=== PATIENT | male | born 1955 | race Caucasian/White ===

== ENCOUNTER 2021-06-15 08:24 | Inpatient (IN) | payer MEDICARE, OTHER ==
[2021-06-15] VITALS (19 sets, daily range): BP systolic 62–165; BP diastolic 21–80
[~2021-06-15] VITALS: Ht 175.3 cm; Wt 49.4 kg
--- NOTE | 2021-06-15 08:27 | NUR ---
TO ER BED 5, [id number] FROM [facility] FOR NOTED LOW O2 SATURATION AT 78% ON ROOM AIR SALVAGE CLERK, TACHYCARDIA AND FEBRILE TEMP AT 102.2 RECTALLY UPON ARRIVAL, AAOX1, AWAITING MD ROY
[2021-06-15] MEDS ORDERED: ACETAMINOPHEN 650 MG/SUPP.RECT RC ONE ×2 (08:45→09:00)
--- NOTE | 2021-06-15 08:50 | NUR ---
MULTISKILL OPERATOR AT BEDSIDE FOR BLOOD DRAW
--- NOTE | 2021-06-15 08:51 | NUR ---
RESPIRATORY AT BEDSIDE
--- NOTE | 2021-06-15 08:52 | NUR ---
URINE COLLECTED AND SENT TO LAB
[2021-06-15] MEDS ORDERED: ALBUTEROL FS 2.5 MG/3 ML VIAL.NEB NEB ONE (09:00)
[2021-06-15] MEDS ORDERED: ALBUTEROL FS 2.5 MG/3 ML VIAL.NEB ONE (09:00)
[2021-06-15] MEDS ORDERED: CEFTRIAXONE 1GM BAG (ER ONLY) 50 ML IV ONE (09:00)
[2021-06-15] MEDS ORDERED: IPRATROPIUM NEB FS 0.5 MG/2.5 ML AMPUL.NEB ONE (09:00)
[2021-06-15] MEDS ORDERED: IV LR 1000 ML 1,000 ML BAG IV ONE (09:00)
--- NOTE | 2021-06-15 09:00 | NUR ---
COVID SWAB DONE AND SENT TO LAB
[2021-06-15 09:15] LABS: ABG PO2 55.9 mmHg (75.0-100.0); COHb 0.3 % (0.5-1.5); MetHb 0.3 % (0.0-1.5); O2Hb 88.7 % (94.0-97.0); SITE, ABG Right Brachial; VENT MODE, BG 15 LPM NRB
[2021-06-15 09:30] LABS: BASOPHILS # (AUTO) 0.1 K/uL (0.0-0.2); BASOPHILS % (AUTO) 0.3 % (0.0-2.0); HEMATOCRIT 25 % (39-51); HEMOGLOBIN 7.9 g/dL (13.5-17.5); LYMPHOCYTES % (AUTO) 4.7 % (20.0-44.0); MEAN CORPUSCULAR HGB CONC 31 g/dl (31.0-36.0); MEAN CORPUSCULAR VOLUME 89 fL (80-96); MONOCYTES # (AUTO) 1.5 K/uL (0.1-1.30); MONOCYTES % (AUTO) 7.1 % (2.0-12.0); NEUTROPHILS # (AUTO) 18.9 K/uL (1.8-8.9); NEUTROPHILS % (AUTO) 87.9 % (43.0-81.0); PLATELET COUNT (AUTO) 545 K/uL (150-450); RED BLOOD CELL COUNT(AUTO) 2.83 MIL/uL (4.5-6.0); WHITE BLOOD COUNT (AUTO) 21.5 K/uL (4.3-11.0)
[2021-06-15 09:40] LABS: BILIRUBIN,URINE NEGATIVE (NEGATIVE); COLOR,URINE YELLOW (YELLOW); LEUKOCYTE ESTERASE ,URINE NEGATIVE (NEGATIVE); NITRITE, URINE NEGATIVE (NEGATIVE); PROTEIN,URINE TRACE mg/dl (NEGATIVE); UGLUCOSE NEGATIVE (NEGATIVE); UROBILINOGEN,URINE 0.2 EU/dL (0.2)
[2021-06-15 09:41] LABS: ALANINE AMINOTRANSFERASE 7 U/L (12-78); ALBUMIN 2.5 g/dL (3.4-5.0); ALKALINE PHOSPHATASE 95 U/L (46-116); ASPARTATE AMINOTRANSFERASE 22 U/L (15-37); BILIRUBIN,DIRECT 0.1 mg/dL (0.0-0.2); BILIRUBIN,TOTAL 0.5 mg/dL (0.2-1.0); CARBON DIOXIDE 28 mmol/L (21-32); CHLORIDE 110 mmol/L (98-107); CREATININE 2.3 mg/dL (0.6-1.3); POTASSIUM 3.7 mmol/L (3.5-5.1); SODIUM SERUM 150 mmol/L (136-145); TOTAL PROTEIN, SERUM 6.4 g/dL (6.4-8.2); UREA NITROGEN, BLOOD 76 mg/dL (7-18)
[2021-06-15 09:56] LABS: GLUCOSE 96 mg/dL (74-106)
[2021-06-15] MEDS ORDERED: DOXYCYCLINE 100 MG in IV D5W 100 ML IV SCH (10:00)
[2021-06-15] MEDS ORDERED: IV LR 1000 ML 1,000 ML IV ONE ×2 (10:00→14:00)
--- NOTE | 2021-06-15 10:18 | NUR ---
EPIC PAGED, AWAITING CALL BACK. NURSING SHOEBLACK CALLED FOR ICU BED.
[2021-06-15] MEDS ORDERED: CRAN400T3 PO (10:45)
[2021-06-15] MEDS ORDERED: FERR325T23 PO (10:45)
[2021-06-15] MEDS ORDERED: AMIN30LI2 PO (10:45)
[2021-06-15] MEDS ORDERED: MAGN400T8 PO (10:45)
[2021-06-15] MEDS ORDERED: ASCO500C17 PO (10:45)
[2021-06-15] MEDS ORDERED: MULT-439 PO (10:45)
[2021-06-15] MEDS ORDERED: ZINC220T3 PO (10:45)
[2021-06-15] MEDS ORDERED: HYDR-4303 PO (10:45)
[2021-06-15 10:50] LABS: BACTERIA,URINE None seen /HPF (None Seen); CALCIUM OXALATE CRYSTALS,UR Few /HPF (None Seen); SQUAMOUS EPITHELIAL CELL,UR Rare /HPF (None Seen); WBC,URINE 0-2 /HPF (0-3)
--- NOTE | 2021-06-15 11:17 | NUR ---
BED GIVEN 103
--- NOTE | 2021-06-15 11:37 | NUR ---
REPORT GIVEN TO GABRIELLA (RN).
--- NOTE | 2021-06-15 12:13 | NUR ---
etomidate 20mg 1155 and succh 100 mg given at 1159 for intubation. pt got intubated at 1200.
[2021-06-15] MEDS ORDERED: PROPOFOL 100 ML IV PRN (12:30)
--- NOTE | 2021-06-15 12:30 | NUR ---
DIPRIVAN STARTED AT 1245 AT 5MCG/KG/MIN.
[2021-06-15] MEDS ORDERED: PROPOFOL 100 ML ONE (13:08)
[2021-06-15] MEDS ORDERED: SUCCINYLCHOLINE CHLORIDE 20 MG/ML VIAL IV ONE ×2 (13:30→14:00)
[2021-06-15] MEDS ORDERED: ETOMIDATE 2 MG/ML VIAL IV ONE ×2 (13:30→14:00)
[2021-06-15] MEDS ORDERED: Z GUARD REMEDY 4 OZ OINT TP PRN (14:00)
[2021-06-15] MEDS ORDERED: ACETAMINOPHEN 650 MG/SUPP.RECT RC PRN (14:00)
[2021-06-15] MEDS ORDERED: NOREPINEPHRINE 8 MG in IV NS 0.9% 242 ML IV ONE (14:00)
[2021-06-15] MEDS ORDERED: ONDANSETRON HCL/PF 4 MG/2 ML VIAL IVP PRN (14:00)
--- NOTE | 2021-06-15 14:15 | NUR ---
REPORT GIVEN TO JOSEPH CROWDER). Addendum: 06/15/21 at 1441 by LOGAN REPORT GIVEN TO JOSEPH CROWDER).
[2021-06-15] MEDS ORDERED: NOREPINEPHRINE 8 MG in IV NS 0.9% 242 ML IV PRN (14:30)
--- NOTE | 2021-06-15 14:39 | NUR ---
PT TRANSFERRED TO ICU PER ACLS PROTOCOL.
--- NOTE | 2021-06-15 14:40 | NUR ---
PT TRANSFERRED PER ACLS PROTOCOL.
[2021-06-15] MEDS: VANCOMYCIN 500 MG in IV D5W 100 ML IV SCH (15:06)
[2021-06-15] MEDS: ENOXAPARIN SODIUM 30 MG/0.3 ML DISP.SYRIN SQ SCH (15:10)
[2021-06-15] MEDS: PROPOFOL 100 ML IV PRN ×3 (15:29→19:24)
[2021-06-15 15:46] LABS: ABG BASE EXCESS -0.1 mmol/L; ABG PCO2 39.3 mmHg (35.0-45.0); ABG PH 7.412 (7.350-7.450); ABG PO2 49.5 mmHg (75.0-100.0); AaDO2 624.2 mmHg; COHb 0.3 % (0.5-1.5); MetHb 0.3 % (0.0-1.5); O2Hb 81.5 % (94.0-97.0); PEEP,BG 0 cm H2O; SITE, ABG Left Brachial; VENT MODE, BG AC 100%; VT, ABG 350 mL
--- NOTE | 2021-06-15 16:36 | NUR ---
RT Patient received in ER on 15 LPM via NRB. Pt placed on HFNC 60LPM/100% FI02 post ABG. Pt Sp02 remained 65% on HFNC + 15LPM NRB. MD Barnes intubated with 7.5 ETT 24cm @ Lip with settings as noted. Will continue to monitor. Ambu bag at bedside.
[2021-06-15] MEDS: DOCUSATE SODIUM 100 MG CAPSULE PO SCH (17:48)
[2021-06-15] MEDS: IV LR 1000 ML 1,000 ML IV PRN (19:24)
--- NOTE | 2021-06-15 20:00 | NUR ---
ICU NOTES Received patient sedated on Diprivan gtt at 60 mcg and patient currently intubated on full vent support.Continue on same vent settings.No acute respiratory distress noted.Afebrile.ST 120's. Normotensive.NPO with OGT clamped placement verified.HOB elevated.IVF LR infusing to VINNIE PICC line site intact.FC to gravity.Turned and repositioned.Continue monitoring.
[2021-06-15] MEDS: CEFEPIME 2 GM in IV D5W 100 ML IV SCH (21:00)
[2021-06-16] VITALS (90 sets, daily range): BP systolic 69–169; BP diastolic 38–85
[2021-06-16] MEDS: IV LR 1000 ML 1,000 ML IV PRN ×3 (00:34→21:29)
[2021-06-16] MEDS ORDERED: PHENYLEPHRINE 10 MG/ML VIAL ONE (00:38)
[2021-06-16] MEDS: PHENYLEPHRINE 50 MG in IV NS 0.9% 245 ML IV PRN ×2 (00:53→22:07)
--- NOTE | 2021-06-16 00:53 | NUR ---
ICU NOTES Patient started on Anibal Synephrine for low BP and will titrate accordingly. Continue monitoring.
[2021-06-16] MEDS: PROPOFOL 100 ML IV PRN ×4 (01:54→21:16)
[2021-06-16 06:00] LABS: BASOPHILS % (AUTO) 0.2 % (0.0-2.0); HEMATOCRIT 26 % (39-51); HEMOGLOBIN 8.2 g/dL (13.5-17.5); LYMPHOCYTES % (AUTO) 4.3 % (20.0-44.0); MEAN CORPUSCULAR HGB CONC 31 g/dl (31.0-36.0); MEAN CORPUSCULAR VOLUME 90 fL (80-96); MONOCYTES # (AUTO) 0.8 K/uL (0.1-1.30); MONOCYTES % (AUTO) 3.4 % (2.0-12.0); NEUTROPHILS # (AUTO) 21.5 K/uL (1.8-8.9); NEUTROPHILS % (AUTO) 92.1 % (43.0-81.0); PLATELET COUNT (AUTO) 494 K/uL (150-450); RED BLOOD CELL COUNT(AUTO) 2.91 MIL/uL (4.5-6.0); WHITE BLOOD COUNT (AUTO) 23.3 K/uL (4.3-11.0)
--- NOTE | 2021-06-16 06:27 | NUR ---
CLOSING NOTES. Patient remains sedated.ST 103-107.Tolerating vent settings.Oral care done.Bed bath rendered.Turned and repositioned q 2 hrs.Continue on Anibal Synephrine gtt at 0.09 mcg., Diprivan gtt at 50 mcg and IVF LR.No acute distress noted.No BM noted.Urine minimal. Will endorse to day shift for СЕРГЕЙ.
--- NOTE | 2021-06-16 07:15 | NUR ---
RN NOTES RECEIVED PT SEDATED ON DIPRIVAN @50MCG. INTUBATED ETT 7.5/24CM AT THE LIP. AC: 18, TV: 350, FIO2: 90% AND PEEP OF 5. TOLERATING VENT SETTINGS WELL, O2 SAT @100%. VINNIE PICC INTACT AND PATENT. GARETT @0.9 MCG AND LR @100ML. MCINTYRE CATH IN PLACE. BILATERAL SOFT WRIST RESTRAINTS NOTED, CHECKED CIRCULATION PER PROTOCOL. SAFETY MEASURES IN PLACE. BED LOCKED AND IN LOWEST POSITION WITH SIDE RAILS UP X3. WILL CONTINUE TO MONITOR.
[2021-06-16 07:24] LABS: CREATININE 2.2 mg/dL (0.6-1.3); MAGNESIUM 1.6 mg/dL (1.8-2.4); PHOSPHORUS 5.8 mg/dL (2.5-4.9); POTASSIUM 3.9 mmol/L (3.5-5.1)
[2021-06-16] MEDS: DOCUSATE SODIUM 100 MG CAPSULE PO SCH ×2 (08:21→16:37)
[2021-06-16] MEDS: PANTOPRAZOLE 40 MG VIAL IV SCH (08:21)
[2021-06-16 10:50] LABS: CALCIUM, SERUM 13.2 mg/dL (8.5-10.1)
[2021-06-16] MEDS ORDERED: MAGNESIUM OXIDE 400 MG TABLET NG ONE (11:00)
[2021-06-16 12:23] LABS: ALBUMIN 2.1 g/dL (3.4-5.0); BILIRUBIN,TOTAL 0.2 mg/dL (0.2-1.0); TOTAL PROTEIN, SERUM 5.4 g/dL (6.4-8.2)
[2021-06-16] MEDS ORDERED: PAMIDRONATE 90 MG in IV NS 0.9% 500 ML IV ONE (14:00)
[2021-06-16] MEDS: ENOXAPARIN SODIUM 30 MG/0.3 ML DISP.SYRIN SQ SCH (14:17)
--- NOTE | 2021-06-16 19:10 | NUR ---
RN NOTES RECEIVED PT SEDATED ON DIPRIVAN @50MCG. INTUBATED ETT 7.5/24CM AT THE LIP. AC: 18, TV: 350, FIO2: 50% AND PEEP OF 5. TOLERATING VENT SETTINGS WELL, O2 SAT @100%. VINNIE PICC INTACT AND PATENT. GARETT @0.8 MCG AND LR @100ML. MCINTYRE CATH IN PLACE. BILATERAL SOFT WRIST RESTRAINTS NOTED, CHECKED CIRCULATION PER PROTOCOL. SAFETY MEASURES IN PLACE. BED LOCKED AND IN LOWEST POSITION WITH SIDE RAILS UP X3. WILL CONTINUE TO MONITOR.
[2021-06-16 19:15] LABS: THYROID STIMULATING HORMONE 1.188 uIU/mL (0.358-3.74)
--- NOTE | 2021-06-16 19:20 | NUR ---
RN NOTES NO SIGNIFICANT CHANGES THROUGHOUT THE SHIFT. TOLERATING VENT SETTINGS WELL. NO SOB OR ANY DISTRESS. ALL DUE MEDS GIVEN. NEEDS ATTENDED. KEPT CLEAN AND COMFORTABLE. SAFETY MEASURES IN PLACE. ENDORSED TO NIGHT RN FOR СЕРГЕЙ.
[2021-06-16] MEDS: CEFEPIME 2 GM in IV D5W 100 ML IV SCH (21:08)
[2021-06-17] VITALS (88 sets, daily range): BP systolic 99–159; BP diastolic 47–86
[2021-06-17] MEDS: PROPOFOL 100 ML IV PRN ×4 (06:03→22:45)
[2021-06-17 06:38] LABS: MAGNESIUM 1.8 mg/dL (1.8-2.4)
--- NOTE | 2021-06-17 06:52 | NUR ---
RN NOTES PATIENT SEDATED NO SIGNIFICANT CHANGES. STILL ON ET CONNECTED TO VENT WITH PRESCRIBED SETTING TOLERATED WELL. WITH PROPOFOL @ 50 MCG, GARETT @ 0.7. ALL DUE MEDS GIVEN ORDERED. KEPT CLEAN AND DRY. ALL SAFETY MEASURES IN PLACE AT ALL TIMES. HOB ELEVATED. CALL LIGHT WITHIN REACH. WILL ENDORSED TO MORNING SHIFT FOR СЕРГЕЙ
--- NOTE | 2021-06-17 07:30 | NUR ---
RN OPENING NOTE PT RECEIVED IN BED WITH HOB 30 DEGREES. PT IS ON MECHANICAL VENT WITH ALL PRESCRIBED SETTINGS TOLERATING WELL WITH NO SIGNS OF LABORED BREATHING OR SOB O2 SAT 99%. PT IS SEDATED WITH DIPROVAN @50MCG/HR. FC IS IN PLACE DRAINING URINE TO GRAVITY. IV ACCESS R FA 18G; L FA 18G; R UA PICC; INFUSING WITH DIPROVAN @50MCG/HR, GARETT @ 0.7 MCG/HR, AND LR @ 100ML/HR. BED IS LOCKED IN LOWEST POSITION X 2 GUARD RAILS UP AND ALL HOSPITAL SAFETY PROTOCOLS ARE IN PLACE. WILL CONTINUE TO MONITOR THIS SHIFT.
[2021-06-17] MEDS: IV LR 1000 ML 1,000 ML IV PRN ×2 (07:45→17:32)
[2021-06-17 08:37] LABS: BASOPHILS % (AUTO) 0.2 % (0.0-2.0); EOSINOPHILS % (AUTO) 0.6 % (0.0-6.0); HEMATOCRIT 31 % (39-51); HEMOGLOBIN 8.5 g/dL (13.5-17.5); LYMPHOCYTES # (AUTO) 1.3 K/uL (0.8-4.8); LYMPHOCYTES % (AUTO) 6.8 % (20.0-44.0); MEAN CORPUSCULAR HGB CONC 27 g/dl (31.0-36.0); MEAN CORPUSCULAR VOLUME 102 fL (80-96); MONOCYTES # (AUTO) 0.7 K/uL (0.1-1.30); MONOCYTES % (AUTO) 3.6 % (2.0-12.0); NEUTROPHILS # (AUTO) 16.6 K/uL (1.8-8.9); NEUTROPHILS % (AUTO) 88.8 % (43.0-81.0); PLATELET COUNT (AUTO) 453 K/uL (150-450); RED BLOOD CELL COUNT(AUTO) 3.07 MIL/uL (4.5-6.0); WHITE BLOOD COUNT (AUTO) 18.7 K/uL (4.3-11.0)
[2021-06-17] MEDS: PANTOPRAZOLE 40 MG VIAL IV SCH (08:38)
[2021-06-17] MEDS: DOCUSATE SODIUM 100 MG CAPSULE PO SCH (08:38)
[2021-06-17 08:59] LABS: CALCIUM, SERUM 12.6 mg/dL (8.5-10.1); CREATININE 2.4 mg/dL (0.6-1.3); POTASSIUM 3.5 mmol/L (3.5-5.1)
[2021-06-17 09:52] LABS: ABG BASE EXCESS 0.4 mmol/L; ABG OXYGEN SATURATION 97.1 % (92.0-98.5); ABG PCO2 37.9 mmHg (35.0-45.0); ABG PH 7.431 (7.350-7.450); AaDO2 223.9 mmHg; COHb 0.3 % (0.5-1.5); MetHb 0.2 % (0.0-1.5); O2Hb 96.6 % (94.0-97.0); SITE, ABG Right Radial
--- NOTE | 2021-06-17 12:00 | NUR ---
RN NOTE PER XRAY IMPRESSION AND RECOMMENDATION, OG TUBE PLACEMENT ADVANCED BY 5CM, FROM 47CM - 52CM.
[2021-06-17] MEDS: ENOXAPARIN SODIUM 30 MG/0.3 ML DISP.SYRIN SQ SCH (13:09)
[2021-06-17] MEDS: VANCOMYCIN 500 MG in IV D5W 100 ML IV SCH (15:02)
[2021-06-17] MEDS ORDERED: PAMIDRONATE 90 MG in IV NS 0.9% 500 ML IV ONE (16:30)
[2021-06-17] MEDS ORDERED: CALCITONIN,SALMON INJ 400 UNITS/2 ML VIAL SQ SCH (17:00)
[2021-06-17] MEDS: PHENYLEPHRINE 50 MG in IV NS 0.9% 245 ML IV PRN (17:37)
[2021-06-17] MEDS: DOCUSATE SODIUM LIQ 100 MG/10 ML UDC NG SCH (17:37)
--- NOTE | 2021-06-17 19:30 | NUR ---
RN CLOSING NOTE PT IS IN BED WITH HOB 30 DEGREES. PT IS ON MECHANICAL VENT WITH ALL PRESCRIBED SETTINGS TOLERATING WELL WITH NO SIGNS OF LABORED BREATHING OR SOB O2 SAT 100%. PT IS SEDATED WITH DIPROVAN @50MCG/HR. FC IS IN PLACE DRAINING URINE TO GRAVITY. IV ACCESS R FA 18G; L FA 18G; R UA PICC; INFUSING WITH DIPROVAN @50MCG/HR, GARETT @ 0.6 MCG/HR, AND LR @ 100ML/HR. BED IS LOCKED IN LOWEST POSITION X 2 GUARD RAILS UP AND ALL HOSPITAL SAFETY PROTOCOLS ARE IN PLACE. WILL ENDORSE TO INSTRUMENT PANEL ASSEMBLER NURSE FOR СЕРГЕЙ.
--- NOTE | 2021-06-17 21:12 | NUR ---
LABORATORY IMMUNOLOGIST. INITIAL ASSESSMENT. RECEIVED THE PT REST IN BED. ORALLY INTUBATED, SEDATED WITH PROPOFOL 50MCG/KG/MIN, GARETT 0.6MCG/KG/MIN REMAINING SAME VENT SETTINGS TOLERATED WELL. SAT 98%, NO ACUTE DISTRESS NOTED, CHANNEL CEMENTER SHOWING NSR, IV RT UPPER ARM PICC, LR 100ML/H,PROPOFOL 50 MG/KG/MIN, GARETT 0.6 MCG/KG/MIN, FC PATENT. OGT CLAMPED. HOB ELEVATED. WILL ONTINUE TO MONITOR VITALS
[2021-06-17] MEDS: CEFEPIME 2 GM in IV D5W 100 ML IV SCH (21:22)
[2021-06-18] VITALS (84 sets, daily range): BP systolic 73–125; BP diastolic 40–67
[2021-06-18] MEDS: IV LR 1000 ML 1,000 ML IV PRN ×3 (03:16→23:06)
[2021-06-18 04:59] LABS: HEMATOCRIT 26 % (39-51); HEMOGLOBIN 8.1 g/dL (13.5-17.5); MEAN CORPUSCULAR HGB CONC 32 g/dl (31.0-36.0); MEAN CORPUSCULAR VOLUME 89 fL (80-96); NEUTROPHILS % (AUTO) 93.1 % (43.0-81.0); PLATELET COUNT (AUTO) 414 K/uL (150-450); RED BLOOD CELL COUNT(AUTO) 2.89 MIL/uL (4.5-6.0); WHITE BLOOD COUNT (AUTO) 16.4 K/uL (4.3-11.0)
[2021-06-18 05:00] LABS: BASOPHILS % (AUTO) 0.2 % (0.0-2.0); EOSINOPHILS % (AUTO) 1.7 % (0.0-6.0); LYMPHOCYTES # (AUTO) 0.4 K/uL (0.8-4.8); LYMPHOCYTES % (AUTO) 2.7 % (20.0-44.0); MONOCYTES # (AUTO) 0.4 K/uL (0.1-1.30); MONOCYTES % (AUTO) 2.3 % (2.0-12.0); NEUTROPHILS # (AUTO) 15.3 K/uL (1.8-8.9)
[2021-06-18 05:44] LABS: CALCIUM, SERUM 11.7 mg/dL (8.5-10.1); CREATININE 2.4 mg/dL (0.6-1.3); POTASSIUM 3.2 mmol/L (3.5-5.1)
--- NOTE | 2021-06-18 06:00 | NUR ---
horticultural farmer. am care given. remaining same vent settings tolerated well. sat 98%. no acute distress noted. hall monitor showing nsr. remaining icf lr 100ml/h, propofol 50mcg/kg/min,lakeisha 0.8 mcg/kg/min,fc patent. urine draining. hob elevated. will continue to monitor vitals.
[2021-06-18] MEDS: PROPOFOL 100 ML IV PRN ×3 (07:24→22:51)
--- NOTE | 2021-06-18 07:30 | NUR ---
RN OPENING NOTE PT RECEIVED IN BED WITH HOB 30 DEGREES. PT IS ON MECHANICAL VENT WITH ALL PRESCRIBED SETTINGS TOLERATING WELL WITH NO SIGNS OF LABORED BREATHING OR SOB O2 SAT 100%. PT IS SEDATED WITH DIPROVAN @50MCG/HR. OG IS IN PLACE AND CLAMPED AT THIS TIME AND NPO DUE TO POSSIBLE THORACENTESIS TODAY. FNS AND WOUND CONSULTATION WILL BE DONE TODAY. FC IS IN PLACE DRAINING URINE TO GRAVITY. IV ACCESS R FA 18G; L FA 18G; R UA PICC; INFUSING WITH DIPROVAN @50MCG/HR, GARETT @ 0.8 MCG/HR, AND LR @ 100ML/HR. BED IS LOCKED IN LOWEST POSITION X 2 GUARD RAILS UP AND ALL HOSPITAL SAFETY PROTOCOLS ARE IN PLACE. WILL CONTINUE TO MONITOR THIS SHIFT.
--- NOTE | 2021-06-18 07:47 | NUR ---
WOUND CARE CONSULT: PT PRESENTS WITH CACHEXIA, SACRAL DEEP TISSUE INJURY (INTACT) AND OPEN AREA WITH YELLOW SLOUGH, PRESENT ON ADMISSION. PT NOTED TO HAVE SCARRING TO BILATERAL LATERAL LOWER LEGS WITH DISCOLORATION. PT IS CURRENTLY INTUBATED. PT IS ON KAILASH ISOFLEX LOW AIRLOSS BED. SKIN PROTECTION MEASURES DISCUSSED WITH NURSING STAFF. FRANCISCO JAVIER GOODSON NOTED. SURGICAL CONSULT CALLED TO DR KOHANZADEH. TEJEDA IN AGREEMENT WITH PLAN OF CARE. Addendum: 06/18/21 at 0750 by ASHUTOSH LUCAS WNDNU Amended: Links added.
[2021-06-18] MEDS: DOCUSATE SODIUM LIQ 100 MG/10 ML UDC NG SCH ×2 (09:00→17:42)
[2021-06-18] MEDS: PANTOPRAZOLE 40 MG/PACK PACK NG SCH (09:00)
[2021-06-18] MEDS ORDERED: POTASSIUM CHLORIDE 20 MEQ POWDER PACKET GT SCH (10:00)
--- NOTE | 2021-06-18 11:30 | NUR ---
RN NOTE: CONSENT ATTEMPT THIS NURSE CALLED [facility] TO REQUEST CONSENT FOR PT FOR US GUIDED THORACENTESIS LEFT SIDED. WAS UNABLE TO MAKE CONTACT WITH [facility].
--- NOTE | 2021-06-18 11:35 | NUR ---
RN NOTE: CONSENT SIGNED OBTAINED SIGNATURE FOR US GUIDED THORACENTESIS FROM DR. ROMEO RANKIN DUE TO BEING UNABLE TO GET CONSENT FROM [facility], NEXT OF KIN LISTED IN CHART.
[2021-06-18] MEDS ORDERED: POTASSIUM CL. PREMIX PERIPHER. 50 ML IV SCH (12:00)
--- NOTE | 2021-06-18 12:26 | NUR ---
RN NOTE: S/P US GUIDED THORACENTESIS LEFT SIDED US GUIDED THORACENTESIS LEFT SIDED COMPLETED AT BEDSIDE BY RADIOLOGIST. NO COMPLICATIONS AND PT IS STABLE AT THIS TIME. -30ML FLUID REMOVED FOR DIAGNOSTIC PURPOSES. ALL FORMS COMPLETED, TAKEN TO LAB, DROPPED OFF AND SIGNED CYTOLOGY FOLDER.
[2021-06-18] MEDS: IV NS 0.9% 250 ML IV PRN (12:43)
[2021-06-18] MEDS: ENOXAPARIN SODIUM 30 MG/0.3 ML DISP.SYRIN SQ SCH (13:24)
--- NOTE | 2021-06-18 14:00 | NUR ---
RN NOTE: PREVELON OFFLOADING BOOTS CONTACTED [facility] FOR PREVELON OFFLOADING BOOTS RECOMMENDED FOR PT BY PROVIDER. [facility] REPORTED THEY DO NOT HAVE THE BOOTS
[2021-06-18] MEDS: PHENYLEPHRINE 50 MG in IV NS 0.9% 245 ML IV PRN (18:44)
[2021-06-18] MEDS: JEVITY 1.2 CAL 1,000 ML BOTTLE GT PRN (19:01)
--- NOTE | 2021-06-18 19:30 | NUR ---
RN CLOSING NOTE PT IN BED WITH HOB 30 DEGREES. PT IS ON MECHANICAL VENT WITH ALL PRESCRIBED SETTINGS TOLERATING WELL WITH NO SIGNS OF LABORED BREATHING OR SOB O2 SAT 98%. PT IS SEDATED WITH DIPROVAN @50MCG/HR. OG AND WAS ADVANCED BY 3CM PER RADIOLOGY RECOMMENDATION TO 55CM AND IS CURRENTLY INFUSING WITH JEVITY 1.2 @10ML/HR X24 HOURS. PT HAD LEFT HD GUIDED THORACENTESIS TODAY -30ML FOR DIAGNOSTIC PURPOSES. FNS AND WOUND CONSULTATION WAS DONE TODAY. FC IS IN PLACE DRAINING URINE TO GRAVITY -650ML. IV ACCESS R FA 18G; L FA 18G; R UA PICC; INFUSING WITH DIPROVAN @50MCG/HR, GARETT @ 1.0 MCG/HR, AND LR @ 100ML/HR. BED IS LOCKED IN LOWEST POSITION X 2 GUARD RAILS UP AND ALL HOSPITAL SAFETY PROTOCOLS ARE IN PLACE. WILL ENDORSE TO DIRECTOR TRANSLATIONAL NURSE FOR СЕРГЕЙ.
--- NOTE | 2021-06-18 20:00 | NUR ---
ICU NOTES Patient intubated to mechanical vent continue the same settings well tolerated.Sedated on Diprivan gtt at 50 mcg.SR.Continue Levophed gtt at 1 mcg and will titrate accordingly.No signs of distress.OGT feeding in progress.Placement verified.No residual noted.Maintain HOB elevated to prevent aspiration.FC to gravity.Turned and repositioned.Continue monitoring.
[2021-06-18] MEDS: CEFEPIME 2 GM in IV D5W 100 ML IV SCH (21:14)
[2021-06-18] MEDS: THERAHONEY GEL 1.5 OZ TUBE TP SCH (22:00)
[2021-06-19] VITALS (96 sets, daily range): BP systolic 49–141; BP diastolic 31–73
[2021-06-19 05:28] LABS: BASOPHILS # (AUTO) 0.1 K/uL (0.0-0.2); BASOPHILS % (AUTO) 0.5 % (0.0-2.0); EOSINOPHILS % (AUTO) 1.4 % (0.0-6.0); HEMATOCRIT 26 % (39-51); HEMOGLOBIN 8.5 g/dL (13.5-17.5); LYMPHOCYTES # (AUTO) 0.5 K/uL (0.8-4.8); LYMPHOCYTES % (AUTO) 4.1 % (20.0-44.0); MEAN CORPUSCULAR HGB CONC 32 g/dl (31.0-36.0); MEAN CORPUSCULAR VOLUME 88 fL (80-96); MONOCYTES # (AUTO) 0.4 K/uL (0.1-1.30); MONOCYTES % (AUTO) 2.8 % (2.0-12.0); NEUTROPHILS # (AUTO) 11.7 K/uL (1.8-8.9); NEUTROPHILS % (AUTO) 91.2 % (43.0-81.0); PLATELET COUNT (AUTO) 429 K/uL (150-450); RED BLOOD CELL COUNT(AUTO) 2.98 MIL/uL (4.5-6.0); WHITE BLOOD COUNT (AUTO) 12.8 K/uL (4.3-11.0)
[2021-06-19] MEDS: PROPOFOL 100 ML IV PRN ×2 (05:30→17:25)
--- NOTE | 2021-06-19 06:34 | NUR ---
ICU NOTES Patient remains sedated with Diprivan at 50 mcg.Continued on same vent settings.No acute distress noted.VSS.Still on low dose of Anibal Synephrine gtt.Tolerating feeding.AM care and wound care done.Turned and repositioned Q 2 hrs off loading pressure points.No significant changes noted during the shift.Kept comfortable.
--- NOTE | 2021-06-19 07:30 | NUR ---
OPENING NOTE: REPORT RECEIVED FROM MALORIE GALVIN. PT INTUBATED SEDATED ON PROPOFOL. GARETT-SYNEPHRINE GTT INFUSING PER MD ORDERS. TUBE FEEDING INFUSING WITHOUT DIFFICULTY PER REPORT AT 10ML/HR. PT CHECKED ON HOURLY AND PRN BY NURSING STAFF.
[2021-06-19 08:31] LABS: CREATININE 2.1 mg/dL (0.6-1.3); POTASSIUM 3.3 mmol/L (3.5-5.1)
[2021-06-19] MEDS: DOCUSATE SODIUM LIQ 100 MG/10 ML UDC NG SCH ×2 (08:35→17:00)
[2021-06-19] MEDS: PANTOPRAZOLE 40 MG/PACK PACK NG SCH (08:35)
[2021-06-19] MEDS: THERAHONEY GEL 1.5 OZ TUBE TP SCH (08:36)
[2021-06-19] MEDS: IV LR 1000 ML 1,000 ML IV PRN ×2 (09:47→17:20)
[2021-06-19] MEDS ORDERED: POTASSIUM CL. PREMIX PERIPHER. 50 ML IV SCH (10:00)
--- NOTE | 2021-06-19 10:54 | NUR ---
RN CALLED [facility] [phone] AT 0900, LEFT MESSAGE. [facility] RETURNED THE CALL TO RN AT 1040. ED STATED THAT PATIENT USED TO LIVE AT HER HOUSE BUT PT'S SISTER ITZ LINK (CELL) [phone], (HOME) [phone] IS PT'S NEXT OF KIN AND WHO SHOULD BE MAKING DECISIONS FOR PATIENT. RN CALLED ITZ AND INFORMED HER THAT PATIENT IS IN THE HOSPITAL AND HIS CURRENT STATUS. RN INFORMED ITZ THAT HER NAME AND NUMBER WILL BE UPDATED IN OUR SYSTEM FOR NOK AND CONTACT INFORMATION. ITZ WAS GIVEN INFORMATION REGARDING CODE STATUS, EXPLAINED THE DIFFERENCE BETWEEN FULL CODE, DNR AND COMFORT MEASURES. ITZ STATED SHE WANTED TO TALK TO THEIR HALF SISTER BELÉN BEFORE MAKING A DECISION AND WILL CALL BACK. Addendum: 06/19/21 at 1107 by RITIKA NOVOA RN OK FOR [facility] TO GET INFORMATION ABOUT PATIENTS STATUS BUT NOT MAKE DECISIONS FOR HIS CARE.
[2021-06-19] MEDS: VANCOMYCIN 0.75 GM in IV D5W 250 ML IV SCH (14:39)
[2021-06-19] MEDS: ENOXAPARIN SODIUM 30 MG/0.3 ML DISP.SYRIN SQ SCH (14:46)
[2021-06-19] MEDS: JEVITY 1.2 CAL 1,000 ML BOTTLE GT PRN (17:17)
[2021-06-19] MEDS: IV NS 0.9% 250 ML IV PRN (17:20)
[2021-06-19] MEDS: PHENYLEPHRINE 50 MG in IV NS 0.9% 245 ML IV PRN (17:47)
--- NOTE | 2021-06-19 18:15 | NUR ---
END OF SHIFT NOTE: PT HAD A FAIRLY UNEVENTFUL SHIFT. PT HAD A LARGE FORMED BM THIS SHIFT. PROPOFOL TITRATED OFF FOR SEDATION VACATION TODAY, TURNED BACK ON TO 10 MCG/KG/MIN FOR ELEVATED RESPIRATIONS, PT NOT AGITATED, NODS OCCASIONALLY TO QUESTIONS. GARETT-SYNEPHRINE TITRATED DOWN TO 0.02 MCG/KG/MIN PER MD ORDERS. DRESSING CHANGES DONE PER MD ORDERS. PT CHECKED ON HOURLY AND PRN BY NURSING STAFF.
--- NOTE | 2021-06-19 20:00 | NUR ---
ICU NOTES Patient awake on Diprivan gtt at 10 mcg patient calm but RR 30'S. Increased Diprivan rate per protocol.Remains intubated with same vent settings.No acute respiratory distress noted. SR/ST low 100's.Levophed gtt infusing at low dose for BP support.OGT feeding in progress. Placement verified no residual noted.HOB elevated.FC to gravity.Turned and repositioned off loading pressure points. Addendum: 06/19/21 at 2255 by MALORIE MORRIS RN CORRECTION: GARETT SYNEPHRINE GTT INFUSING NOT LEVOPHED GTT.
[2021-06-19] MEDS: CEFEPIME 2 GM in IV D5W 100 ML IV SCH (21:09)
[2021-06-20] VITALS (68 sets, daily range): BP systolic 89–159; BP diastolic 29–81
[2021-06-20] MEDS: IV LR 1000 ML 1,000 ML IV PRN ×2 (03:39→16:03)
[2021-06-20 04:22] LABS: BASOPHILS % (AUTO) 0.3 % (0.0-2.0); EOSINOPHILS % (AUTO) 1.1 % (0.0-6.0); HEMATOCRIT 25 % (39-51); HEMOGLOBIN 8.2 g/dL (13.5-17.5); LYMPHOCYTES # (AUTO) 0.5 K/uL (0.8-4.8); LYMPHOCYTES % (AUTO) 4.4 % (20.0-44.0); MEAN CORPUSCULAR HGB CONC 32 g/dl (31.0-36.0); MEAN CORPUSCULAR VOLUME 87 fL (80-96); MONOCYTES # (AUTO) 0.3 K/uL (0.1-1.30); MONOCYTES % (AUTO) 3.1 % (2.0-12.0); NEUTROPHILS % (AUTO) 91.1 % (43.0-81.0); PLATELET COUNT (AUTO) 329 K/uL (150-450); RED BLOOD CELL COUNT(AUTO) 2.91 MIL/uL (4.5-6.0); WHITE BLOOD COUNT (AUTO) 10.9 K/uL (4.3-11.0)
[2021-06-20 04:33] LABS: CALCIUM, SERUM 10.5 mg/dL (8.5-10.1); CREATININE 1.9 mg/dL (0.6-1.3); MAGNESIUM 1.9 mg/dL (1.8-2.4); PHOSPHORUS 4.7 mg/dL (2.5-4.9); POTASSIUM 3.2 mmol/L (3.5-5.1)
[2021-06-20] MEDS: PROPOFOL 100 ML IV PRN (05:35)
--- NOTE | 2021-06-20 07:00 | NUR ---
END NOTE Patient resting in no acute distress.VS stable.SR.Anibal synephrine gtt titrated down per protocol.Tolerating OGT feeding.Moderate soft BM.Kept clean and dry.Bathed and linens changed.Turned and repositioned.Report given to Jamie Vasquezfor continuity of care.
--- NOTE | 2021-06-20 07:05 | NUR ---
PT RECEIVED IN BED SEDATED. PT IS ON MECHANICAL VENT SETTING PER MD FIO2 40% TOLERATING WELL WITH NO SIGNS OF LABORED BREATHING OR SOB O2 SAT 99%. PT IS SEDATED WITH DIPRIVAN @30MCG//KG/MIN.GARETT @ 0.01 MCG//KG/MIN AND LR @ 100ML/HR. FC IS IN PLACE DRAINING URINE TO GRAVITY. IV ACCESS R FA 18G; L FA 18G; R UA PICC; BILATERAL WRIST SOFT RESTRAINTS ON PLACE CIRCULATION WILL CHECKED REGULARLY, BED IS LOCKED IN LOWEST POSITION X 2 GUARD RAILS UP AND ALL HOSPITAL SAFETY PROTOCOLS ARE IN PLACE. WILL CONTINUE TO MONITOR
[2021-06-20] MEDS: DOCUSATE SODIUM LIQ 100 MG/10 ML UDC NG SCH ×2 (08:23→16:40)
[2021-06-20] MEDS: PANTOPRAZOLE 40 MG/PACK PACK NG SCH (08:23)
[2021-06-20] MEDS: THERAHONEY GEL 1.5 OZ TUBE TP SCH (08:23)
--- NOTE | 2021-06-20 08:53 | NUR ---
TURN OFF SEDATION PER DR. KELLEY, SEDATE PT ONLY WHEN HE IS ON DISTRESS
[2021-06-20] MEDS: POTASSIUM CL. PREMIX PERIPHER. 50 ML IV SCH ×3 (09:29→11:42)
[2021-06-20] MEDS: VANCOMYCIN 0.75 GM in IV D5W 250 ML IV SCH (14:11)
[2021-06-20] MEDS: ENOXAPARIN SODIUM 30 MG/0.3 ML DISP.SYRIN SQ SCH (14:13)
--- NOTE | 2021-06-20 15:41 | NUR ---
fio2 increase from 40% to 60% due to desaturation. Addendum: 06/20/21 at 1542 by TENZIN PAUL RT Amended: Links added.
--- NOTE | 2021-06-20 18:19 | NUR ---
PT HR IS ON 100-120 SINUS TACHY ON MONITOR, INFORMED KENNY AG DO ABOUT THAT WITH ORDER FOR NORCO 10/325 PRN FOR MOD PAIN NOTED AND CARRIED OUT
[2021-06-20] MEDS: HYDROCODONE/APAP 10/325MG TABLET NG PRN (18:33)
--- NOTE | 2021-06-20 20:00 | NUR ---
ICU NOTES Patient awake non verbal orally intubated to mechanical vent with same settings.No acute distress noted.SR.VS stable.Feeding via OGT infusing no residual noted.Placement verified.IVF LR infusing.FC to gravity.Turned and repositioned offloading pressure points. Continue monitoring.
[2021-06-20] MEDS: CEFEPIME 2 GM in IV D5W 100 ML IV SCH (20:45)
[2021-06-20] MEDS: IV NS 0.9% 250 ML IV PRN (20:52)
[2021-06-21] VITALS (25 sets, daily range): BP systolic 93–131; BP diastolic 47–77
[2021-06-21] MEDS: IV LR 1000 ML 1,000 ML IV PRN ×3 (00:42→20:25)
[2021-06-21 03:59] LABS: BASOPHILS # (AUTO) 0.1 K/uL (0.0-0.2); BASOPHILS % (AUTO) 0.5 % (0.0-2.0); EOSINOPHILS % (AUTO) 0.6 % (0.0-6.0); HEMATOCRIT 27 % (39-51); HEMOGLOBIN 8.7 g/dL (13.5-17.5); LYMPHOCYTES # (AUTO) 0.6 K/uL (0.8-4.8); LYMPHOCYTES % (AUTO) 4.4 % (20.0-44.0); MEAN CORPUSCULAR HGB CONC 33 g/dl (31.0-36.0); MEAN CORPUSCULAR VOLUME 86 fL (80-96); MONOCYTES # (AUTO) 0.5 K/uL (0.1-1.30); MONOCYTES % (AUTO) 3.4 % (2.0-12.0); NEUTROPHILS # (AUTO) 12.3 K/uL (1.8-8.9); NEUTROPHILS % (AUTO) 91.1 % (43.0-81.0); PLATELET COUNT (AUTO) 324 K/uL (150-450); RED BLOOD CELL COUNT(AUTO) 3.09 MIL/uL (4.5-6.0); WHITE BLOOD COUNT (AUTO) 13.5 K/uL (4.3-11.0)
--- NOTE | 2021-06-21 04:00 | NUR ---
ICU NOTES Patient awake follows simple commands.Desat to 85% .Secretions suctioned PRN.RT titrated FIO2 to 100%.No acute distress noted.AM care done.Tolerating tube feeding.Turned and repositioned Q 2 hrs.Maintain HOB elevated.Kept comfortable.
[2021-06-21 04:19] LABS: CALCIUM, SERUM 10.2 mg/dL (8.5-10.1); MAGNESIUM 1.6 mg/dL (1.8-2.4); POTASSIUM 3.3 mmol/L (3.5-5.1)
[2021-06-21 05:04] LABS: CREATININE 1.9 mg/dL (0.6-1.3)
--- NOTE | 2021-06-21 07:45 | NUR ---
ICU/RN PT IS INTUBATED ON THE VENT .PLACED ON SIMV MODE ORDERED.OFF SEDATION.AWAKE,ALERT.OFF PRESSORS.V/S STABLE,AFEBRILE.NO PAIN REPORTED AT THIS TIME.RIGHT UPPER ARM PICC LINE.OG TUBE INFUSING WITH JEVITY ORDERED.NO RESIDUAL.F/C DRAINING WITH YELLOW URINE.LABS REVIEW.MD AWARE.SUCTION PROVIDED.REPOSITION FOR COMFORT.CONTINUE MONITORING.
--- NOTE | 2021-06-21 07:47 | NUR ---
vent changes below per dr. gary for weaning trial: SIMV 4 PS 15 FIO2 80% PEEP +5 Addendum: 06/21/21 at 0749 by TENZIN PAUL RT Amended: Links added.
[2021-06-21] MEDS: DOCUSATE SODIUM LIQ 100 MG/10 ML UDC NG SCH ×2 (08:25→16:34)
[2021-06-21] MEDS: PANTOPRAZOLE 40 MG/PACK PACK NG SCH (08:25)
[2021-06-21] MEDS: THERAHONEY GEL 1.5 OZ TUBE TP SCH (08:26)
[2021-06-21 09:46] LABS: ABG BASE EXCESS -0.5 mmol/L; ABG OXYGEN SATURATION 90.7 % (92.0-98.5); ABG PCO2 29.5 mmHg (35.0-45.0); ABG PH 7.496 (7.350-7.450); ABG PO2 56.1 mmHg (75.0-100.0); AaDO2 267.2 mmHg; COHb 0.3 % (0.5-1.5); MetHb 0.3 % (0.0-1.5); O2Hb 90.2 % (94.0-97.0); PEEP,BG 5 cm H2O; SITE, ABG Right Radial; VT, ABG 350 mL
[2021-06-21] MEDS ORDERED: Magnesium 1GM/D5W 100ML PREMIX 100 ML IV SCH (10:00)
[2021-06-21] MEDS ORDERED: POTASSIUM CHLORIDE 20 MEQ POWDER PACKET GT ONE (10:00)
[2021-06-21] MEDS: Magnesium 1GM/D5W 100ML PREMIX 100 ML IV SCH ×2 (10:33→11:24)
[2021-06-21] MEDS ORDERED: POTASSIUM CL. PREMIX PERIPHER. 50 ML IV SCH (11:00)
--- NOTE | 2021-06-21 14:40 | NUR ---
ICU/RN PT S/P LEFT THORACENTESIS 980 ML OUTPUT.PT TOLERATED PROCEDURE WELL. NO S/S OF BLEEDING.
[2021-06-21] MEDS: VANCOMYCIN 0.75 GM in IV D5W 250 ML IV SCH (14:53)
--- NOTE | 2021-06-21 15:51 | NUR ---
PT PLACED BACK TO AC MODE WITH 100% FIO2 DUE TO 38 RESPIRATION AND 82% SATURATION. RN NOTIFIED ON VENT CHANGES MADE. Addendum: 06/21/21 at 1556 by TENZIN PAUL RT Amended: Links added.
[2021-06-21] MEDS: JEVITY 1.2 CAL 1,000 ML BOTTLE GT PRN (16:34)
[2021-06-21] MEDS: IV NS 0.9% 250 ML IV PRN (16:43)
[2021-06-21] MEDS: HYDROCODONE/APAP 10/325MG TABLET NG PRN (16:47)
--- NOTE | 2021-06-21 17:30 | NUR ---
ICU/RN PM CARE PROVIDED.WOUND DRESSING DONE ORDERED. PT PLACED ON AC MODE,FIO2-100%. NORCO FOR PAIN GIVEN ORDERED.GENERALIZED EDEMA NOTED. MG-1.6.REPLACED WITH 2 GM MG SO4.AND POTASSIUM LEVEL 3.3- 40 MEQ KLOR VIA G-TUBE GIVEN ORDERED.
--- NOTE | 2021-06-21 19:36 | NUR ---
RN NOTE RECEIVED PATIENT IN BED, OPENS EYES SPONTANEOUSLY, UNABLE TO FOLLOW COMMANDS. BREATHING EVEN AND UNLABORED. INTUBATED. ET 7.5/26 CM AT THE LIP VENT SETTINGS ARE FOLLOWS AC: 18, FIO2 100% VT 350, PEEP 5. TOLERATING WELL, OXYGEN SATURATION OF 100 PERCENT. SUCTIONED VIA ET TUBE. NO RESIDUAL. OGT PRESENT 55 CM AT THE LIP. CURRENTLY INFUSING JEVITY AT 20 CC/HR. NO RESIDUAL. HOB ELEVATED 40 DEGREES. SKIN WARM AND DRY. NOTED WITH UPPER AND LOWER BILATERAL EDEMA. RIGHT UPPER ARM PICC LINE, INFUSING LR AT 100 CC/HR. NO LEAKING. BILATERAL SOFT WRIST RESTRAINTS. BILATERAL RADIAL PULSES WNL. INDWELLING MCINTYRE CATHETER, DRAINING ADEQUATE YELLOW URINE. NO HEMATURIA. INTACT. ASSIST WITH TURNING AND REPOSITIONING. NO FACIAL GRIMACING AT THIS TIME. BED LOW, IN LOCKED POSITION, CALL LIGHT WITHIN REACH.
[2021-06-21] MEDS: CEFEPIME 2 GM in IV D5W 100 ML IV SCH (21:14)
[2021-06-22] VITALS (63 sets, daily range): BP systolic 64–130; BP diastolic 41–74
[2021-06-22] MEDS: HYDROCODONE/APAP 10/325MG TABLET NG PRN ×2 (02:21→15:46)
--- NOTE | 2021-06-22 02:25 | NUR ---
RN NOTE BED BATH PROVIDED/LINEN CHANGE. WOUND CARE DONE. NOTED WITH FACIAL GRIMACING AND MILD IRRITABILITY/RESTLESSNESS. ELEVATED HR >110. ADMINISTERED NORCO 10-325 FOR PAIN PER MD ORDER. WILL CONTINUE TO MONITOR.
[2021-06-22 04:16] LABS: BASOPHILS % (AUTO) 0.3 % (0.0-2.0); EOSINOPHILS % (AUTO) 0.3 % (0.0-6.0); HEMATOCRIT 25 % (39-51); HEMOGLOBIN 7.9 g/dL (13.5-17.5); LYMPHOCYTES # (AUTO) 0.5 K/uL (0.8-4.8); LYMPHOCYTES % (AUTO) 3.4 % (20.0-44.0); MEAN CORPUSCULAR HGB CONC 31 g/dl (31.0-36.0); MEAN CORPUSCULAR VOLUME 88 fL (80-96); MONOCYTES # (AUTO) 0.6 K/uL (0.1-1.30); MONOCYTES % (AUTO) 4.1 % (2.0-12.0); NEUTROPHILS # (AUTO) 12.6 K/uL (1.8-8.9); NEUTROPHILS % (AUTO) 91.9 % (43.0-81.0); PLATELET COUNT (AUTO) 284 K/uL (150-450); RED BLOOD CELL COUNT(AUTO) 2.88 MIL/uL (4.5-6.0); WHITE BLOOD COUNT (AUTO) 13.7 K/uL (4.3-11.0)
[2021-06-22 04:38] LABS: CALCIUM, SERUM 10.5 mg/dL (8.5-10.1); CREATININE 1.8 mg/dL (0.6-1.3); MAGNESIUM 2.1 mg/dL (1.8-2.4); PHOSPHORUS 4.9 mg/dL (2.5-4.9); POTASSIUM 4.2 mmol/L (3.5-5.1)
[2021-06-22] MEDS: IV LR 1000 ML 1,000 ML IV PRN ×2 (05:37→14:56)
--- NOTE | 2021-06-22 07:20 | NUR ---
START OF SHIFT NOTES: RECEIVED REPORT FROM NIGHT RN-ASHLY; PATIENT RESTING ON BED COMFORTABLY; NO SSx OF ANY DISTRESS NOTED AT THIS TIME; IVF INFUSING WELL AND OGT FEEDING RUNNING PER MD ORDERS. BED IN LOWEST POSITION AND WHEELS LOCKED; CALL LIGHT WITHIN REACH. WILL CONTINUE TO MONITOR PATIENT.
[2021-06-22] MEDS: DOCUSATE SODIUM LIQ 100 MG/10 ML UDC NG SCH ×2 (08:07→16:39)
[2021-06-22] MEDS: THERAHONEY GEL 1.5 OZ TUBE TP SCH (08:08)
[2021-06-22] MEDS: PANTOPRAZOLE 40 MG/PACK PACK NG SCH (08:36)
--- NOTE | 2021-06-22 08:45 | NUR ---
ICU-RN PATIENT IS ON SIMV MODE ORDERED; PATIENT SAT.O2 AT 84%; TACHYPNEIC AND TACHYCARDIC, DR. KELLEY SEEN THE PATIENT, PATIENT PLACED TO AC MODE BY RT, OKAY TO START DIPRIVAN WITH TRIGLYCERIDE [address] KELLEY IS AWARE. WILL RECHECK TRIGLYCERIDE LEVEL TOMORROW AM. WILL CONTINUE MONITORING.
[2021-06-22] MEDS: PROPOFOL 100 ML IV PRN ×2 (09:18→18:58)
[2021-06-22] MEDS: JEVITY 1.2 CAL 1,000 ML BOTTLE GT PRN (09:21)
[2021-06-22] MEDS: PHENYLEPHRINE 50 MG in IV NS 0.9% 245 ML IV PRN (11:36)
--- NOTE | 2021-06-22 11:40 | NUR ---
MANAGING MANAGER NOTES PATIENT'S BP DECREASED, NEOSYNEPHRINE STARTED ORDERED
[2021-06-22] MEDS: VANCOMYCIN 0.75 GM in IV D5W 250 ML IV SCH (14:06)
[2021-06-22] MEDS: IV NS 0.9% 250 ML IV PRN (14:57)
--- NOTE | 2021-06-22 19:02 | NUR ---
END OF SHIFT NOTES: REPORT GIVEN TO TONYA; NO SIGNIFICANT CHANGES NOTED AT THIS TIME; ALL DUE MEDS GIVEN ORDERED; HOURLY AND PRN ROUNDING DONE BY STAFF. KEPT PATIENT COMFORTABLE; CALL LIGHT WITHIN REACH. ENDORSED FOR CONTINUITY OF CARE.
[2021-06-22] MEDS: CEFEPIME 2 GM in IV D5W 100 ML IV SCH (20:06)
[2021-06-23] VITALS (61 sets, daily range): BP systolic 84–112; BP diastolic 40–55
[2021-06-23] MEDS: IV LR 1000 ML 1,000 ML IV PRN ×3 (00:41→21:24)
[2021-06-23] MEDS: PHENYLEPHRINE 50 MG in IV NS 0.9% 245 ML IV PRN ×3 (02:11→16:33)
[2021-06-23] MEDS: PROPOFOL 100 ML IV PRN ×4 (02:11→22:57)
--- NOTE | 2021-06-23 07:00 | NUR ---
RN NOTE PT OBTUNDED AND SEDATED. VENT SETTINGS AC 18, TV 350, FIO2 50%, AND PEEP 0. GT SITE PATENT AND FLUSHING. NO RESIDUAL. TOLERATING 20CC JEVITY. RU PICC LINE LR 100CC, GARETT 1.4 MCG, AND DIPRIVAN 45 MCG. MCINTYRE INTACT. WILL CONTINUE TO MONITOR.
[2021-06-23] MEDS ORDERED: PHENYLEPHRINE 50 MG in IV NS 0.9% 245 ML IV PRN (07:11)
--- NOTE | 2021-06-23 07:16 | NUR ---
ICU/RN: ENDORSED TO DAYSHIFT RN TO GET NEW ORDER FOR GARETT.
[2021-06-23 07:20] LABS: BASOPHILS # (AUTO) 0.1 K/uL (0.0-0.2); BASOPHILS % (AUTO) 0.4 % (0.0-2.0); EOSINOPHILS % (AUTO) 1.5 % (0.0-6.0); HEMATOCRIT 22 % (39-51); HEMOGLOBIN 7.1 g/dL (13.5-17.5); LYMPHOCYTES # (AUTO) 0.4 K/uL (0.8-4.8); LYMPHOCYTES % (AUTO) 2.8 % (20.0-44.0); MEAN CORPUSCULAR HGB CONC 32 g/dl (31.0-36.0); MEAN CORPUSCULAR VOLUME 88 fL (80-96); MONOCYTES # (AUTO) 0.5 K/uL (0.1-1.30); MONOCYTES % (AUTO) 3.7 % (2.0-12.0); NEUTROPHILS # (AUTO) 13.4 K/uL (1.8-8.9); NEUTROPHILS % (AUTO) 91.6 % (43.0-81.0); PLATELET COUNT (AUTO) 315 K/uL (150-450); RED BLOOD CELL COUNT(AUTO) 2.53 MIL/uL (4.5-6.0); WHITE BLOOD COUNT (AUTO) 14.7 K/uL (4.3-11.0)
[2021-06-23 07:56] LABS: CALCIUM, SERUM 9.6 mg/dL (8.5-10.1); MAGNESIUM 2.1 mg/dL (1.8-2.4); PHOSPHORUS 5.3 mg/dL (2.5-4.9); POTASSIUM 4.4 mmol/L (3.5-5.1)
[2021-06-23] MEDS: DOCUSATE SODIUM LIQ 100 MG/10 ML UDC NG SCH ×2 (09:05→17:19)
[2021-06-23] MEDS: THERAHONEY GEL 1.5 OZ TUBE TP SCH (09:05)
[2021-06-23] MEDS: PANTOPRAZOLE 40 MG/PACK PACK NG SCH (09:05)
[2021-06-23] MEDS ORDERED: DOSING PER PHARMACY-TOBRA INHALATION 1 EA XX PRN (11:00)
[2021-06-23] MEDS ORDERED: TOBRAMYCIN 320 MG in IV D5W 100 ML IV SCH (13:00)
--- NOTE | 2021-06-23 17:00 | NUR ---
RN NOTE SPOKE TO DR. HIGGINS ABOUT PT SWOLLEN TESTICLES. PER ORDERED ULTRASOUND OF SCROTUM CONTENTS
[2021-06-23] MEDS: TOBRAMYCIN 80 MG/2 ML VIAL INH SCH (19:39)
--- NOTE | 2021-06-23 19:45 | NUR ---
ICU/UNARMED SECURITY OFFICER RECEIVED REPORT FROM DAY NURSE. SEE FLOWSHEET FOR ASSESSMENT. THERE ARE MANY SKIN ISSUES WHICH ARE ADDRESSED ON THE FLOWSHEET, ALONG WITH THE INTERVENTIONS TO EACH. PT HAS IV DRIPS WHICH ARE ADDRESSED ON THE IV SPREAD SHEET ALONG WITH THE TITRATIONS TO THEM. PT WAS THEN TURNED AND REPOSITIONED FOR COMFORT AND CARE. NO ACUTE DISTRESS SEEN AT THIS TIME. WILL CONTINUE TO MONITOR THIS PT.
[2021-06-24] VITALS (91 sets, daily range): BP systolic 80–139; BP diastolic 34–78
[2021-06-24] MEDS: PHENYLEPHRINE 50 MG in IV NS 0.9% 245 ML IV PRN ×2 (02:47→14:11)
--- NOTE | 2021-06-24 04:30 | NUR ---
ICU/CONCRETE POINTER AM LABS WERE DRAWN. AWAIT FOR CRITICAL LAB VALUES.
[2021-06-24 05:18] LABS: BASOPHILS # (AUTO) 0.1 K/uL (0.0-0.2); BASOPHILS % (AUTO) 0.2 % (0.0-2.0); EOSINOPHILS % (AUTO) 0.8 % (0.0-6.0); HEMATOCRIT 24 % (39-51); HEMOGLOBIN 7.5 g/dL (13.5-17.5); LYMPHOCYTES # (AUTO) 0.5 K/uL (0.8-4.8); LYMPHOCYTES % (AUTO) 2.5 % (20.0-44.0); MEAN CORPUSCULAR HGB CONC 31 g/dl (31.0-36.0); MEAN CORPUSCULAR VOLUME 88 fL (80-96); MONOCYTES # (AUTO) 0.7 K/uL (0.1-1.30); MONOCYTES % (AUTO) 3.5 % (2.0-12.0); NEUTROPHILS # (AUTO) 19.6 K/uL (1.8-8.9); PLATELET COUNT (AUTO) 370 K/uL (150-450); RED BLOOD CELL COUNT(AUTO) 2.73 MIL/uL (4.5-6.0); WHITE BLOOD COUNT (AUTO) 21.1 K/uL (4.3-11.0)
[2021-06-24 05:35] LABS: CALCIUM, SERUM 9.4 mg/dL (8.5-10.1); MAGNESIUM 2.1 mg/dL (1.8-2.4); POTASSIUM 4.4 mmol/L (3.5-5.1)
[2021-06-24] MEDS: PROPOFOL 100 ML IV PRN ×3 (05:38→19:40)
[2021-06-24] MEDS: IV LR 1000 ML 1,000 ML IV PRN ×2 (05:39→16:25)
[2021-06-24] MEDS: TOBRAMYCIN 80 MG/2 ML VIAL INH SCH ×2 (08:23→20:11)
[2021-06-24] MEDS: PANTOPRAZOLE 40 MG/PACK PACK NG SCH (09:07)
[2021-06-24] MEDS: DOCUSATE SODIUM LIQ 100 MG/10 ML UDC NG SCH ×2 (09:07→17:00)
[2021-06-24] MEDS: THERAHONEY GEL 1.5 OZ TUBE TP SCH (09:09)
[2021-06-24] MEDS: LINEZOLID 600 MG TABLET PO SCH ×2 (13:50→20:58)
[2021-06-24] MEDS: JEVITY 1.2 CAL 1,000 ML BOTTLE GT PRN (13:57)
--- NOTE | 2021-06-24 14:58 | NUR ---
RT Daily ABG cancelled. No weaning or vent changes made.
--- NOTE | 2021-06-24 19:00 | NUR ---
ICU CLOSING NOTES Patient is sedated and on mechanical vent, abdiaziz well. On propofol 45 mcg, Anibal 1.6 mcg and Lactated ringer at 100 cc/hour. Noted with urine output of 650 cc. One loose bm noted during shift. Turned and repositioned q2h and prn. Will endorse to next shift for rosales. Bed is in lowest and locked position.
--- NOTE | 2021-06-24 21:00 | NUR ---
ICU/BANK OFFICER RT TITRATED FIO2 DOWN TO 30% FROM 40. WILL MONITOR THIS PT'S SATURATION.
[2021-06-24] MEDS ORDERED: TOBRAMYCIN 320 MG in IV D5W 100 ML IV SCH (22:00)
--- NOTE | 2021-06-24 22:30 | NUR ---
ICU/CHILD SUPPORT SPECIALIST HAVE BEEN ACTIVELY TITRATING THE GARETT ON THIS STABLE PT'S BLOOD PRESSURE. SEE IV SPREAD SHEET FOR BLOOD PRESSURE AND TITRATIONS. WILL CONTINUE TO MONITOR THIS PT.
[2021-06-25] VITALS (62 sets, daily range): BP systolic 85–138; BP diastolic 47–80
--- NOTE | 2021-06-25 00:30 | NUR ---
ICU/HOSPITAL WARD CLERK FRIDAY'S WOUND PHOTO DOCUMENTATION WAS DONE AND SKIN ISSUES WERE ADDRESSED AND UPDATED ALONG WITH INTERVENTIONS TO EACH OF THESE ISSUES. PT WAS TURNED AND REPOSITIONED FOR COMFORT AND CARE.
--- NOTE | 2021-06-25 02:00 | NUR ---
ICU/MANUFACTURING TEAM MEMBER SATURATION DECREASED TO THE 80'S, RT INCREASED THE FIO2 TO 40%. WILL CONTINUE TO CLOSELY MONITOR THIS PT.
[2021-06-25] MEDS: PHENYLEPHRINE 50 MG in IV NS 0.9% 245 ML IV PRN (02:02)
[2021-06-25] MEDS: IV LR 1000 ML 1,000 ML IV PRN (03:52)
[2021-06-25] MEDS: PROPOFOL 100 ML IV PRN (03:53)
[2021-06-25 05:02] LABS: BASOPHILS # (AUTO) 0.1 K/uL (0.0-0.2); BASOPHILS % (AUTO) 0.4 % (0.0-2.0); EOSINOPHILS % (AUTO) 0.9 % (0.0-6.0); HEMATOCRIT 25 % (39-51); LYMPHOCYTES # (AUTO) 0.3 K/uL (0.8-4.8); LYMPHOCYTES % (AUTO) 1.6 % (20.0-44.0); MEAN CORPUSCULAR HGB CONC 32 g/dl (31.0-36.0); MEAN CORPUSCULAR VOLUME 87 fL (80-96); MONOCYTES # (AUTO) 0.7 K/uL (0.1-1.30); MONOCYTES % (AUTO) 3.8 % (2.0-12.0); NEUTROPHILS % (AUTO) 93.3 % (43.0-81.0); PLATELET COUNT (AUTO) 406 K/uL (150-450); RED BLOOD CELL COUNT(AUTO) 2.88 MIL/uL (4.5-6.0); WHITE BLOOD COUNT (AUTO) 18.3 K/uL (4.3-11.0)
[2021-06-25 05:23] LABS: CALCIUM, SERUM 9.1 mg/dL (8.5-10.1); CREATININE 2.1 mg/dL (0.6-1.3); MAGNESIUM 2.3 mg/dL (1.8-2.4); POTASSIUM 4.8 mmol/L (3.5-5.1)
--- NOTE | 2021-06-25 07:05 | NUR ---
RN NOTES RECIEVED PT ON BED, PT INTUBATED AND SEDATED. VENT SETTINGS AC 18, TV 350, FIO2 40%, AND PEEP 0. GT SITE PATENT AND FLUSHING. NO RESIDUAL. TOLERATING 20CC JEVITY. RU PICC LINE SITE CLEAN , DRY AND INTACT , LR 100 CC/HR , GARETT 1.1 MCG, AND DIPRIVAN 45 MCG/KG/MIN RUNINING , MCINTYRE INTACT AND DRAINING TO GRAVITY, SR UP X3, CALL LIGHT WITHIN EASY REACH, BED LOCKED AND IN LOWEST POSITION, WILL CONTINUE TO MONITOR.
[2021-06-25] MEDS: TOBRAMYCIN 80 MG/2 ML VIAL INH SCH (08:20)
[2021-06-25] MEDS: DOCUSATE SODIUM LIQ 100 MG/10 ML UDC NG SCH (08:25)
[2021-06-25] MEDS: PANTOPRAZOLE 40 MG/PACK PACK NG SCH (08:25)
[2021-06-25] MEDS: LINEZOLID 600 MG TABLET PO SCH (08:25)
[2021-06-25] MEDS: THERAHONEY GEL 1.5 OZ TUBE TP SCH (08:32)
[2021-06-25] MEDS ORDERED: DC PROPOFOL WHEN EXTUBATED XX PRN (13:00)
[2021-06-25] MEDS ORDERED: MORPHINE SULFATE INJ 2 MG/ML DISP.SYRIN IV PRN (14:00)
--- NOTE | 2021-06-25 14:00 | NUR ---
RT Pt extubated and placed on 2L nasal cannula. No respiratory distress at this time. RN aware Addendum: 06/25/21 at 1518 by ANDRE FRANCO RT Post extubation assessment. No stridor noted. Patient remains stable.
--- NOTE | 2021-06-25 14:00 | NUR ---
RN NOTES PT GOT EXTUBATED AND ON COMFORT CARE PER DR KELLEY ORDER . CONTINUE TO MONITOR
--- NOTE | 2021-06-25 16:00 | NUR ---
RN NOTES PT TRANSFERED TO ROOM 319 MS STATUS ON COMFORT CARE , REPORT GIVEN TO SHAQ GALVIN FOR CONTINUITIY OF CARE.
--- NOTE | 2021-06-25 16:05 | NUR ---
RN NOTE- PT TRANSFER TO [facility] FOR DX- ACUTE RESP FAILURE/SEPSIS. FOR COMFORT MEASURES ONLY. PT IS DNR PMHX- DEMENTIA, PLUERAL EFFUSION, COPD, OSTEOARTHRITIS, CARCINOMA LT BRONCHOGENIC, VS- BP- 140/58, HR- 108, RR- 22, SATS AT 70% ON 3LPM VIA NC. MCINTYRE CATHETER, SACRAL WOUND CLEAN DRESSING INTACT, VINNIE PICC LINE, GT, PT W ANASARCA THROUGHOUT. PT OBTUNDED, SIDE RAILS UP, BED LOCKED, MONITOR / ASSIST
--- NOTE | 2021-06-25 18:24 | NUR ---
RN NOTE- PT .
--- NOTE | 2021-06-25 19:00 | NUR ---
RN NOTE- [facility], DR HIGGINS AND SISTER NOTIFIED OF EXPIRATION. BODY PREPARED AND PLACED IN BAG. SECURITY NOTIFIED
== END 2021-06-25 18:45 | DRG 870 ==
LOC: ER 08:25 → TELE-TD 11:56 → ICU 12:45 → MED 06-25 16:09
PROVIDERS: ADMIT Nurse Practitioner Acute Care; ATTEND Student in an Organized Health Care Education/Training Program
PROC: 5A1955Z Respiratory Ventilation, Greater than 96 Consecutive Hours (ICD-10-PCS; principal; 2021-06-15)
PROC: 0BH18EZ Insertion of Endotracheal Airway into Trachea, Via Natural or Artificial Opening Endoscopic (ICD-10-PCS; 2021-06-15)
PROC: 02HV33Z Insertion of Infusion Device into Superior Vena Cava, Percutaneous Approach (ICD-10-PCS; 2021-06-15)
PROC: B548ZZA Ultrasonography of Superior Vena Cava, Guidance (ICD-10-PCS; 2021-06-15)
PROC: 0W9B3ZZ Drainage of Left Pleural Cavity, Percutaneous Approach (ICD-10-PCS; 2021-06-18)
DX: A41.9 Sepsis, unspecified organism (principal); E43 Unspecified severe protein-calorie malnutrition; G92.8 Other toxic encephalopathy; Z66 Do not resuscitate; Z51.5 Encounter for palliative care; R65.21 Severe sepsis with septic shock; J96.01 Acute respiratory failure with hypoxia; J15.9 Unspecified bacterial pneumonia; N17.0 Acute kidney failure with tubular necrosis; Z68.1 Body mass index [BMI] 19.9 or less, adult; E87.0 Hyperosmolality and hypernatremia; E87.2 Acidosis; R64 Cachexia; J44.0 Chronic obstructive pulmonary disease with (acute) lower respiratory infection; J98.11 Atelectasis; J90 Pleural effusion, not elsewhere classified; I42.9 Cardiomyopathy, unspecified; C34.92 Malignant neoplasm of unspecified part of left bronchus or lung; D75.839 Thrombocytosis, unspecified; M19.90 Unspecified osteoarthritis, unspecified site; Z87.891 Personal history of nicotine dependence; L89.156 Pressure-induced deep tissue damage of sacral region; Z87.81 Personal history of (healed) traumatic fracture; Z79.899 Other long term (current) drug therapy; E86.1 Hypovolemia; F03.90 Unspecified dementia, unspecified severity, without behavioral disturbance, psychotic disturbance, mood disturbance, and anxiety; E88.09 Other disorders of plasma-protein metabolism, not elsewhere classified; D64.9 Anemia, unspecified; F09 Unspecified mental disorder due to known physiological condition; E86.0 Dehydration; E83.52 Hypercalcemia; E87.6 Hypokalemia; Y95 Nosocomial condition; M62.562 Muscle wasting and atrophy, not elsewhere classified, left lower leg; M62.561 Muscle wasting and atrophy, not elsewhere classified, right lower leg; N50.89 Other specified disorders of the male genital organs
CPT/HCPCS: 31720; 36415; 36569; 36600; 71045-TC; 71250-TC; 76870-TC; 80048-TC; 80053-TC; 80061-TC; 80076-TC; 80202-TC; 81001; 82533; 82803-TC; 83540-TC; 83605-TC; 83735-TC; 84100-TC; 84155-TC; 84443-TC; 84478-TC; 84484-TC; 85025-TC; 85730-TC; 87040-TC; 87070-TC; 87075-TC; 87081-TC; 87086-TC; 87102-TC; 87186-TC; 88108-TC; 88305-TC; 89051-TC; 93307-TC; 94002-TC; 94003-TC; 94640-TC; 94760-TC; 94762-TC; 94799-TC; 99082-TC; A6403; C9113; C9803; G0378; J0330; J0630; J0692; J0696; J1650; J2270; J2370; J2430; J3260; J3370; J3475; J3480; J3490; J7040; J7050; J7060; J7120; U0003